=== PATIENT | female | born 1995 | race Caucasian/White ===

== ENCOUNTER 2022-05-19 09:17 | Inpatient (IN) | payer BC, OTHER ==
[~2022-05-19] VITALS: Ht 160 cm; Wt 88.6 kg
[2022-05-19] MEDS ORDERED: ACETAMINOPHEN 500 MG TAB PO ONE (09:45)
[2022-05-19] MEDS ORDERED: SODIUM CHLORIDE 0.9% 500 ML IV ONE (10:15)
[2022-05-19] MEDS ORDERED: SODIUM CHLORIDE 0.9% 1,000 ML IV ONE (10:15)
[2022-05-19] MEDS ORDERED: METOCLOPRAMIDE HCL 5MG/ml INJ 2ml VIAL IV ONE (10:15)
[2022-05-19] MEDS ORDERED: HYDROmorphone HCL 2 MG/ML VL/or syr IV ONE ×2 (10:15→16:30)
[2022-05-19 10:47] LABS: Basophils # (auto) 0 10 ^3/uL (0-0.2); Basophils % (auto) 0.3 % (0.0-2.0); Eosinophils # (auto) 0.3 10 ^3/uL (0-0.8); Eosinophils % (auto) 2.2 % (0.0-7.0); Hematocrit 41.1 % (36.0-46.0); Hemoglobin 13.8 g/dL (12.2-16.2); Lymphocytes # (auto) 1.7 10 ^3/uL (0.4-5.4); Mean Corpuscular Hemoglobin 27.8 pg (28.0-32.0); Mean Corpuscular Hgb Conc. 33.5 g/dL (32.0-36.0); Monocytes # (auto) 0.5 10 ^3/uL (0-1.3); Neutrophils # (auto) 9.9 10 ^3/uL (1.6-8.6); Neutrophils % (auto) 79.5 % (37.0-80.0); Red Blood Cells 4.95 10^6/uL (4.0-5.20); Red Cell Distribution Width 13.1 % (11.8-14.3); White Blood Cell 12.5 10^3/uL (4.4-10.8)
[2022-05-19 10:49] LABS: Albumin 3.7 g/dL (3.4-5.0); Calcium 8.8 mg/dL (8.5-10.1); Magnesium 1.9 mg/dL (1.6-2.6); Potassium 4.1 mmol/L (3.5-5.1)
[2022-05-19 10:52] LABS: INR 0.97 (0.9-1.15); Partial Thromboplastin Time 27.1 sec (24.6-33.4)
[2022-05-19 10:53] LABS: BUN/Creatinine Ratio 14.4; Bilirubin, Total 0.3 mg/dL (0.2-1.0); Total Protein 7.3 g/dL (6.4-8.2)
[2022-05-19] MEDS ORDERED: MORPHINE SULFATE 4 MG/ML SYR/VIAL IV ONE (13:00)
[2022-05-19] MEDS ORDERED: ONDANSETRON HCL 4 MG/2 ML VIAL IV ONE (13:00)
[2022-05-19 13:20] LABS: Urine Bacteria FEW /hpf (None Seen); Urine Blood 2+ /uL (Negative); Urine Mucus FEW (None Seen); Urine Specific Gravity 1.014 (1.001-1.035); Urine WBC 4 /hpf (0 - 5)
[2022-05-19] MEDS ORDERED: SODIUM CHLORIDE 0.9% 1,000 ML IV SCH (16:30)
[2022-05-19] MEDS ORDERED: ACETAMINOPHEN 325 MG TAB PO PRN (16:30)
[2022-05-19] MEDS ORDERED: PANTOPRAZOLE 40 MG/10 ML VIAL INJ IV ONE (17:00)
[2022-05-19] MEDS ORDERED: cefTRIAXone 1GM/50ML D5W 50 ML IV ONE (17:00)
[2022-05-19] MEDS: LACTATED RINGER'S 1,000 ML IV SCH (17:13)
[2022-05-19] MEDS: HYDROcodone-ACET 5/325MG TAB PO PRN ×2 (17:50→21:52)
[2022-05-19] MEDS: ONDANSETRON HCL 4 MG/2 ML VIAL IV PRN (20:41)
[2022-05-19] MEDS: HYDROmorphone HCL 2 MG/ML VL/or syr IV PRN (20:41)
[2022-05-19] MEDS ORDERED: LORazepam 2MG/ML-1ML VIAL IV ONE (21:45)
[2022-05-19] MEDS ORDERED: HEPARIN SODIUM (PORCINE) 5000 UNITS/ML 1ML VIAL IV ONE (22:00)
[2022-05-20] MEDS: HYDROmorphone HCL 2 MG/ML VL/or syr IV PRN ×6 (00:55→20:23)
[2022-05-20] MEDS: LACTATED RINGER'S 1,000 ML IV SCH ×3 (01:00→19:24)
[2022-05-20] MEDS: HYDROcodone-ACET 5/325MG TAB PO PRN (02:58)
[2022-05-20 05:00] VITALS: BP 116/69
[2022-05-20 06:49] LABS: Basophils # (auto) 0 10 ^3/uL (0-0.2); Basophils % (auto) 0.4 % (0.0-2.0); Eosinophils # (auto) 0.2 10 ^3/uL (0-0.8); Eosinophils % (auto) 2.4 % (0.0-7.0); Hematocrit 39.9 % (36.0-46.0); Hemoglobin 13.4 g/dL (12.2-16.2); Lymphocytes # (auto) 1.9 10 ^3/uL (0.4-5.4); Lymphocytes % (auto) 23.8 % (10.0-50.0); Mean Corpuscular Hgb Conc. 33.7 g/dL (32.0-36.0); Mean Corpuscular Volume 83.1 fL (80.0-100.0); Monocytes # (auto) 0.5 10 ^3/uL (0-1.3); Monocytes % (auto) 6.6 % (0.0-12.0); Neutrophils # (auto) 5.5 10 ^3/uL (1.6-8.6); Neutrophils % (auto) 66.8 % (37.0-80.0); Nucleated Red Blood Cells % 0.1 %; White Blood Cell 8.2 10^3/uL (4.4-10.8)
[2022-05-20 07:10] LABS: Albumin 3.5 g/dL (3.4-5.0); Calcium 8.7 mg/dL (8.5-10.1); Potassium 3.9 mmol/L (3.5-5.1)
[2022-05-20 07:13] LABS: BUN/Creatinine Ratio 11.1; Bilirubin, Total 0.7 mg/dL (0.2-1.0); Total Protein 6.9 g/dL (6.4-8.2)
[2022-05-20] MEDS ORDERED: BUPIVACAINE 0.25% INJ 50ML VIAL ONE (07:35)
[2022-05-20] MEDS ORDERED: MIDAZOLAM HCL 2MG/2ML 2ml VIAL (1mg/ml) ONE (07:36)
[2022-05-20] MEDS ORDERED: fentaNYL CITRATE 100 MCG/2 ML VL ONE (07:36)
[2022-05-20] MEDS ORDERED: MEPERIDINE HCL (25 MG/ML) 1ML VIAL ONE (07:37)
[2022-05-20] MEDS ORDERED: ceFAZolin 1GM/50ML 50 ML IV ONE ×2 (07:42→19:00)
[2022-05-20] MEDS ORDERED: SUCCINYLCHOLINE CHLORIDE 20 MG/ML 10ML VIAL IV ONE (07:42)
[2022-05-20] MEDS ORDERED: LIDOCAINE 1%HCL (LOCAL ANESTH) 10 ML MDV ONE (08:07)
[2022-05-20] MEDS ORDERED: IODINE STRONG 5% SOLN 14ML ONE (08:07)
[2022-05-20] MEDS ORDERED: DexAMETHasone SOD PHOS 10MG/1ML VIAL INJ ONE (08:35)
[2022-05-20] MEDS ORDERED: fentaNYL CITRATE 5 ML ONE (08:35)
[2022-05-20] MEDS ORDERED: PROPOFOL 10 MG/ML 20 ML IV ONE (08:35)
[2022-05-20] MEDS ORDERED: ePHEDrine SULFATE 50 MG/ML AMP IV PRN (09:00)
[2022-05-20] MEDS ORDERED: MORPHINE SULFATE 4 MG/ML SYR/VIAL IV PRN (09:00)
[2022-05-20] MEDS ORDERED: LABETALOL HCL 5 MG/ML 4ML SYRINGE IV PRN (09:00)
[2022-05-20] MEDS ORDERED: cefTRIAXone 1GM/50ML D5W 50 ML IV SCH (09:00)
[2022-05-20] MEDS ORDERED: ONDANSETRON HCL 4 MG/2 ML VIAL IV PRN (09:00)
[2022-05-20] MEDS ORDERED: KETOROLAC TROMETH 30 MG/ML 1ML VIAL IV ONE ×2 (09:00→11:15)
[2022-05-20] MEDS ORDERED: MIDAZOLAM HCL 2MG/2ML 2ml VIAL (1mg/ml) IV PRN (09:00)
[2022-05-20] MEDS ORDERED: ONDANSETRON HCL 4 MG/2 ML VIAL ONE (09:01)
[2022-05-20] MEDS ORDERED: ceFAZolin 1GM VL ONE (10:10)
[2022-05-20] MEDS ORDERED: KETOROLAC TROMETH 30 MG/ML 1ML VIAL ONE (11:16)
[2022-05-20] MEDS ORDERED: HYDROmorphone HCL 2 MG/ML VL/or syr ONE (11:54)
[2022-05-20] MEDS: PANTOPRAZOLE 40 MG/10 ML VIAL INJ IV SCH (12:38)
[2022-05-20] MEDS: KETOROLAC TROMETH 30 MG/ML 1ML VIAL IV SCH ×2 (12:38→18:10)
[2022-05-20] MEDS: cefTRIAXone 1GM/50ML D5W 50 ML IV SCH (14:58)
[2022-05-20] MEDS: ACETAMINOPHEN 500 MG TAB PO SCH ×2 (15:06→22:00)
[2022-05-20 16:54] VITALS: BP 135/80
[2022-05-20] MEDS: ALPRAZolam 0.5 MG TAB PO PRN (18:15)
[2022-05-20] MEDS ORDERED: traMADol HCL 50 MG TAB PO PRN (19:00)
[2022-05-20 20:00] VITALS: BP 119/66
[2022-05-20] MEDS: ONDANSETRON HCL 4 MG/2 ML VIAL IV PRN (20:14)
[2022-05-20 22:00] VITALS: BP 119/66
[2022-05-20] MEDS: ceFAZolin 1GM/50ML 50 ML IV SCH (22:00)
[2022-05-21] VITALS (7 sets, daily range): BP systolic 103–122; BP diastolic 54–68
[2022-05-21] MEDS: LACTATED RINGER'S 1,000 ML IV SCH ×3 (01:00→17:00)
[2022-05-21] MEDS: ONDANSETRON HCL 4 MG/2 ML VIAL IV PRN ×2 (02:21→09:31)
[2022-05-21] MEDS: HYDROmorphone HCL 2 MG/ML VL/or syr IV PRN ×2 (02:33→09:30)
[2022-05-21] MEDS: ACETAMINOPHEN 500 MG TAB PO SCH ×3 (05:30→23:21)
[2022-05-21] MEDS: KETOROLAC TROMETH 30 MG/ML 1ML VIAL IV SCH ×5 (05:30→23:22)
[2022-05-21] MEDS: ceFAZolin 1GM/50ML 50 ML IV SCH (05:30)
[2022-05-21] MEDS: PANTOPRAZOLE 40 MG/10 ML VIAL INJ IV SCH (09:28)
[2022-05-21] MEDS: ENOXAPARIN SOD 40 MG/0.4 ML SYRINGE SC SCH (09:32)
[2022-05-21] MEDS: cefTRIAXone 1GM/50ML D5W 50 ML IV SCH (15:00)
[2022-05-21] MEDS: ALPRAZolam 0.5 MG TAB PO PRN (17:39)
[2022-05-22] MEDS: LACTATED RINGER'S 1,000 ML IV SCH ×2 (01:00→09:00)
[2022-05-22 04:47] VITALS: BP 104/67
[2022-05-22] MEDS: KETOROLAC TROMETH 30 MG/ML 1ML VIAL IV SCH (06:15)
[2022-05-22] MEDS: ACETAMINOPHEN 500 MG TAB PO SCH (06:15)
[2022-05-22] MEDS: ALPRAZolam 0.5 MG TAB PO PRN (06:41)
[2022-05-22 08:00] VITALS: BP_SYST 122; BP_SYST 125; BP_DIAS 60; BP_DIAS 63
[2022-05-22] MEDS ORDERED: RIVA10TA PO (09:26)
[2022-05-22] MEDS ORDERED: ALPR1TAB2 PO (09:26)
[2022-05-22] MEDS ORDERED: HYDR2TAB58 PO ×2 (09:26→13:42)
[2022-05-22] MEDS ORDERED: TRAM50TA2 PO (09:26)
[2022-05-22] MEDS: ENOXAPARIN SOD 40 MG/0.4 ML SYRINGE SC SCH (10:00)
[2022-05-22] MEDS: PANTOPRAZOLE 40 MG/10 ML VIAL INJ IV SCH (10:00)
[2022-05-22] MEDS: HYDROmorphone HCL 2 MG/ML VL/or syr IV PRN (11:42)
[2022-05-22 12:00] VITALS: BP 111/59
[2022-05-22 12:29] VITALS: BP 111/59
== END 2022-05-22 14:25 | disposition home or self-care (01) | DRG 493 ==
LOC: ER 09:17 → OVERFLOW 16:25 → EAST 23:05
PROVIDERS: ADMIT Nurse Practitioner Family; ATTEND Family Medicine
PROC: 0QSJ34Z Reposition Right Fibula with Internal Fixation Device, Percutaneous Approach (ICD-10-PCS; 2022-05-20)
PROC: BQ1DZZZ Fluoroscopy of Right Lower Leg (ICD-10-PCS; 2022-05-20)
PROC: 0QSG06Z Reposition Right Tibia with Intramedullary Internal Fixation Device, Open Approach (ICD-10-PCS; principal; 2022-05-20 07:55)
DX: S82.301A Unspecified fracture of lower end of right tibia, initial encounter for closed fracture (principal); N39.0 Urinary tract infection, site not specified; J45.909 Unspecified asthma, uncomplicated; F41.9 Anxiety disorder, unspecified; S82.431A Displaced oblique fracture of shaft of right fibula, initial encounter for closed fracture; Y93.89 Activity, other specified; Y92.89 Other specified places as the place of occurrence of the external cause; Y99.8 Other external cause status; V00.121A Fall from non-in-line roller-skates, initial encounter; Y93.51 Activity, roller skating (inline) and skateboarding; Z20.822 Contact with and (suspected) exposure to COVID-19
CPT/HCPCS: 36415; 71045; 73590; 73700; 76000; 80053; 81001; 83735; 84702; 85025; 85610; 85730; 86850; 86900; 86901; 87086; 93005; 96365; 96367; 96375; C9113; G0378; J0330; J0690; J0696; J1100; J1885; J2001; J2250; J2405; J2704; J3490